=== PATIENT | male | born 1965 | race Caucasian/White ===

== ENCOUNTER 2020-09-22 11:08 | Observation (INO) | payer OTHER, SELFPAY ==
--- OUTSIDE RECORDS SUMMARY | 2020-09-22 11:10 | XMS REPORT | Continuity of Care Document ---
:1965 Author Organization [facility] t Address [address] [place] [address] Care Team Providers Name Role Phone Carlos Castellon DO Attending Clinician Only, Test Attending Clinician Unavailable Doctor Unassigned, Name Attending Clinician Unavailable Josef GIFFORD Attending Clinician Visit, Nurse Attending Clinician Unavailable 1, Cardio Fac Room Attending Clinician Unavailable Problems This patient has no known problems. Allergies, Adverse Reactions, Alerts This patient has no known allergies or adverse reactions. Medications This patient has no known medications. Procedures This patient has no known procedures. Encounters Start End Encounter Admission Attending Care Care Encounter Source Date/Time Date/Time Type Type Clinicians Facility Department ID 2020-08-29 2020-08-29 Patient Ravinder OKADINA [id number] 00:00:00 00:00:00 Outreach [facility] [id number] [facility] [id number] SOD [id number] 2020-06-29 2020-06-29 Laboratory Only, [facility] [id number] 08:11:04 08:26:04 Only Test Zane [id number] [place] [id number] [place] [id number] 2020-06-29 2020-06-29 Orders Doctor JEWELL [id number] 00:00:00 00:00:00 Only UnassignedALEX [id number] [place] [facility] [id number] 2019-07-01 2019-07-01 Patient Josef, [facility] [id number] 00:00:00 00:00:00 Secure Msg [place] [id number] [place] [id number] [place] [phone] [address] 2019-06-30 2019-06-30 Laboratory Visit, Adc Nurse [facility] 1.2.84 [id number] [id number] 13:57:27 14:57:27 Only 1, Adc Cardio Fac Room [place] 350.1. 13.10 [place] [id number] [place] [id number] [address] 2019-06-30 2019-06-30 Orders Doctor FANTA [id number] 00:00:00 00:00:00 Only Unassigned, [id number] [email or web address] [id number] Results This patient has no known results.
[2020-09-22] MEDS ORDERED: NA CHLORIDE 0.9% 1,000 ML ONE (12:31)
[2020-09-22] MEDS ORDERED: KETOROLAC 30 MG/ML INJ ONE (12:37)
[2020-09-22 12:40] LABS: Absolute Lymphocytes (CBC) 2.6 K/uL (0.7-4.9); Basophils % 0.5 % (0-1.3); Hematocrit 50.3 % (39.6-49.0); Lymphocytes % 12.7 % (15.3-44.8); MPV 8.3 fL (7.6-11.3); RBC Red Blood Cell Count 5.81 M/uL (4.33-5.43)
[2020-09-22 13:07] LABS: Blood Morphology Comment NOT SEEN (NOT SEEN); Platelet Estimate ADEQ
--- NOTE | 2020-09-22 13:15 | RAD REPORT ---
EXAM DESCRIPTION: CT - Abdomen Pelvis W Contrast - 09/22/2020 1:00 pm CLINICAL HISTORY: ABD PAIN COMPARISON: No comparisons TECHNIQUE: Biphasic, helical CT imaging of the abdomen and pelvis was performed following 100 ml non -ionic IV contrast. No oral contrast administered. All CT scans are performed using dose optimization technique as appropriate and may include automated exposure control or mA/KV adjustment according to patient size. FINDINGS: No suspicious findings in the lung bases. The liver, spleen, and pancreas show no suspicious findings. Gallbladder and biliary tree are also wi thout suspicious finding. Symmetric renal function is seen with no hydronephrosis or suspicious renal mass. No pyelonephritis o r acute parenchymal process. No bladder abnormalities. No adrenal abnormalities. No stomach or small bowel abnormality identified. Michael of the stomach are accentuated due to the abs ence of intra lumen content. This precludes a thorough assessment of the gastric michael. No asymmetric gastric wall thickening seen. The appendix is normal. From cecum through splenic flexure no acute co jalyn finding seen. There is an approximately 7 centimeter long segment of the descending colon showing circumferential wall thickening and edema. There is fluid in stranding around the involved colon and collecting in the left pericolic gutter. A single diverticulum is seen in this region. There is no e xtraluminal air or bowel content. No abscess seen. No other area of inflammatory stranding or fluid. No hernia, mass or bulky lymphadenopathy. No suspicious bony findings. IMPRESSION: Circumferential wall thickening of the descending colon with surrounding stranding and f luid. There is no free air, abscess or other surgically emergent finding. Patient has a single diverticulum identifiable in the involved colon. This could be a diverticulitis or colitis. Colon malignancy is felt to be much less likely. A follow-up colonoscopy could be perform ed after medical management of the acute event.
[2020-09-22 13:35] LABS: Albumin 3.5 g/dL (3.4-5.0); Bilirubin Direct 0.2 mg/dL (0-0.2); Bilirubin Total 0.6 mg/dL (0.2-1.0); Potassium 4.5 mmol/L (3.5-5.1); Protein, Total 8.1 g/dL (6.4-8.2)
--- NOTE | 2020-09-22 14:32 | ER ---
Nurse's Notes [facility] Name: Andrés Coffey Age: 54 yrs Sex: Male : 1965 Arrival Date: 09/22/2020 Time: 11:10 Bed 4 Private MD: Diagnosis: Left sided colitis Presentation: 09/22 11:20 Chief complaint: Patient states: L side abdominal pain since yesterday AM. Feels ca1 bloated. Denies N/V/D. Coronavirus screen: Client denies travel out of the [place] in the last 14 days. At this time, the client does not indicate any symptoms associated with coronavirus-19. Ebola Screen: Patient negative for fever greater than or equal to 101.5 degrees Fahrenheit, and additional compatible Ebola Virus Disease symptoms Patient denies exposure to infectious person. Patient denies travel to an Ebola-affected area in the 21 days before illness onset. No symptoms or risks identified at this time. Initial Sepsis Screen: Does the patient meet any 2 criteria? No. Patient's initial sepsis screen is negative. Does the patient have a suspected source of infection? No. Patient's initial sepsis screen is negative. Risk Assessment: Do you want to hurt yourself or someone else? Patient reports no desire to harm self or others. Onset of symptoms was September 21, 2020. 11:20 Method Of Arrival: Ambulatory ca1 11:20 Acuity: JUAN MANUEL 3 ca1 Triage Assessment: 11:25 General: Appears in no apparent distress. uncomfortable, Behavior is cooperative, bp appropriate for age, anxious. Pain: Complains of pain in abdomen. EENT: No deficits noted. Neuro: No deficits noted. Cardiovascular: No deficits noted. Respiratory: No deficits noted. GI: Reports upper abdominal pain. : No signs and/or symptoms were reported regarding the genitourinary system. Derm: No deficits noted. Musculoskeletal: No deficits noted. Historical: - Allergies: 11:23 No Known Allergies; ca1 - PMHx: 11:23 High Cholesterol; ca1 - PSHx: 11:23 Cholecystectomy; ca1 - Immunization history:: Client reports having NOT received the Covid vaccine. Flu vaccine is not up to date. - Social history:: Smoking status: Patient reports the use of cigarette tobacco products, smokes two packs cigarettes per day. Screenin:26 Abuse screen: Denies threats or abuse. Denies injuries from another. Nutritional bp screening: No deficits noted. Tuberculosis screening: No symptoms or risk factors identified. Fall Risk None identified. Assessment: 11:26 General: SEE TRIAGE NOTE. bp 12:21 Reassessment: No changes from previously documented assessment. Patient and/or family bp updated on plan of care and expected duration. Pain level reassessed. CT PENDING. 13:20 Reassessment: No changes from previously documented assessment. Patient and/or family bp updated on plan of care and expected duration. Pain level reassessed. PT RETURNED FROM CT. 14:30 Reassessment: No changes from previously documented assessment. Patient and/or family bp updated on plan of care and expected duration. Pain level reassessed. Patient is alert, oriented x 3, equal unlabored respirations, skin warm/dry/pink. ADMIT INITIATED. 16:30 Reassessment: No changes from previously documented assessment. Patient and/or family bp updated on plan of care and expected duration. Pain level reassessed. Patient is alert, oriented x 3, equal unlabored respirations, skin warm/dry/pink. ADMIT IN PROCESS. 19:49 GI: Bowel sounds present X 4 quads. Abd is soft and non tender X 4 quads. rv Vital Signs: 11:20 BP 126 / 85; Pulse 93; Resp 16 S; Temp 97.9(TE); Pulse Ox 98% on R/A; Weight 102.06 kg ca1 (R); Height 5 ft. 10 in. (177.80 cm) (R); Pain 10/10; 12:30 BP 128 / 76; Pulse 80; Resp 15; Pulse Ox 97% ; jl7 13:20 BP 130 / 83; Pulse 76; Resp 16; Pulse Ox 96% ; bp 14:30 BP 117 / 77; Pulse 75; Resp 17; Pulse Ox 95% ; bp 15:30 BP 108 / 76; Pulse 77; Resp 16; Pulse Ox 96% ; bp 16:30 BP 118 / 73; Pulse 77; Resp 17; Pulse Ox 95% ; bp 17:30 BP 115 / 77; Pulse 75; Resp 16; Pulse Ox 95% ; bp 11:20 Body Mass Index 32.28 (102.06 kg, 177.80 cm) ca1 ED Course: 11:10 Patient arrived in ED. as 11:22 Triage completed. ca1 11:23 Arm band placed on right wrist. ca1 11:25 Vasquez De La Fuente, HARJIT is Primary Nurse. bp 11:26 Patient has correct armband on for positive identification. Bed in low position. Call bp light in reach. Side rails up X2. Adult w/ patient. 11:28 Dallas Chatman PA is PHCP. cp 11:28 Kyle Will MD is Attending Physician. cp 12:18 Initial lab(s) drawn, by nm, sent to lab. Inserted saline lock: 20 gauge in right jl7 antecubital area, using aseptic technique. Blood collected. 13:00 CT Abd/Pelvis - IV Contrast Only In Process Unspecified. EDMS 14:31 Kenroy Carson MD is Hospitalizing Provider. cp 15:20 COVID-19 : Document "Date of Symptom Onset" if Symptomatic. Sent. [facility] 15:20 COVID swab sent to lab. 5 17:39 No provider procedures requiring assistance completed. Patient admitted, IV remains in bp place. Administered Medications: 12:00 Drug: TORadol - (ketorolac) 15 mg Route: IVP; Site: right antecubital; bp 13:53 Follow up: Response: Pain is decreased bp 12:18 Drug: NS 0.9% 1000 ml Route: IV; Rate: 1 bolus; Site: right antecubital; jl7 17:40 Follow up: IV Status: Completed infusion; IV Intake: 1000ml bp 14:00 Drug: metroNIDAZOLE 500 mg Volume: 100 ml; Route: IVPB; Infused Over: 30 mins; Site: bp right antecubital; 17:40 Follow up: IV Status: Completed infusion; IV Intake: 100ml bp 15:00 Drug: Cipro (ciprofloxacin) 400 mg Volume: 200 ml; Route: IVPB; Infused Over: 60 mins; bp Site: right antecubital; 17:39 Follow up: IV Status: Completed infusion; IV Intake: 200ml bp Intake: 17:39 IV: 200ml; Total: 200ml. bp 17:40 IV: 100ml; Total: 300ml. bp 17:40 IV: 1000ml; Total: 1300ml. bp Outcome: 14:32 Decision to Hospitalize by Provider. cp 19:49 Admitted to Med/surg accompanied by nurse, via wheelchair, room 218, Other SBAR Report rv called to KRISTI LOMBARDI 19:49 Condition: good 19:49 Instructed on the need for admit. 19:49 Patient left the ED. rv Signatures: Dispatcher [employer] Erin Mead Corey, PA PA cp Martinez, Maria [facility] Jimbo Greene RN RN jl7 Vasquez De La Fuente RN RN bp Evin Garvey RN RN rv Acob, HARJIT Goldsmith RN ca1 Corrections: (The following items were deleted from the chart) 15:53 15:20 CORONAVIRUS drawn and sent. [facility] JUSTUSNH
--- NOTE | 2020-09-22 14:32 | EDPHYS ---
Physician Documentation [facility] Name: Andrés Coffey Age: 54 yrs Sex: Male : 1965 Arrival Date: 09/22/2020 Time: 11:10 Bed 4 Private MD: ED Physician Kyle Will HPI: 09/22 11:50 This 54 yrs old Male presents to ER via Ambulatory with complaints of cp Abdominal Pain. 11:50 The patient presents with abdominal pain left side of abdomen. Onset: The cp symptoms/episode began/occurred yesterday, and became worse today. 11:50 Associated signs and symptoms: Pertinent negatives: blood in stools, constipation, cp diarrhea, dysuria, fever, testicular pain, vomiting. The symptoms are described as constant. Modifying factors: the symptoms are aggravated by movement. Historical: - Allergies: 11:23 No Known Allergies; ca1 - PMHx: 11:23 High Cholesterol; ca1 - PSHx: 11:23 Cholecystectomy; ca1 - Immunization history:: Client reports having NOT received the Covid vaccine. Flu vaccine is not up to date. - Social history:: Smoking status: Patient reports the use of cigarette tobacco products, smokes two packs cigarettes per day. ROS: 11:55 Eyes: Negative for injury, pain, redness, and discharge. cp 11:55 Constitutional: Negative for body aches, chills, fever, poor PO intake. 11:55 ENT: Negative for ear pain, sore throat, difficulty swallowing, difficulty handling cp secretions. 11:55 Cardiovascular: Negative for chest pain, edema, palpitations. 11:55 Respiratory: Negative for cough, shortness of breath, wheezing. 11:55 Abdomen/GI: Positive for abdominal pain, Negative for vomiting, diarrhea, constipation, black/tarry stool, rectal bleeding. 11:55 Back: Negative for radiated pain. 11:55 : Negative for urinary symptoms, testicular pain 11:55 All other systems are negative. Exam: 12:00 Constitutional: The patient appears in no acute distress, alert, awake, cp non-diaphoretic, non-toxic, well developed, well nourished. 12:00 Head/Face: Normocephalic, atraumatic. cp 12:00 Eyes: Periorbital structures: appear normal, Conjunctiva: normal, no exudate, no injection, Sclera: no appreciated abnormality, Lids and lashes: appear normal, bilaterally. 12:00 ENT: External ear(s): are unremarkable, Nose: is normal, Posterior pharynx: Airway: no evidence of obstruction, patent. 12:00 Chest/axilla: Inspection: normal, Palpation: is normal, no crepitus, no tenderness. 12:00 Cardiovascular: Rate: normal, Rhythm: regular. 12:00 Respiratory: the patient does not display signs of respiratory distress, Respirations: cp normal, no use of accessory muscles, no retractions, labored breathing, is not present, Breath sounds: are clear throughout, no decreased breath sounds, no stridor, no wheezing. 12:00 Abdomen/GI: Inspection: abdomen appears normal, Bowel sounds: active, all quadrants, Palpation: soft, in all quadrants, moderate abdominal tenderness, in the left upper quadrant and left lower quadrant, rebound tenderness, is not appreciated, voluntary guarding, is elicited in the left upper quadrant and left lower quadrant. 12:00 Back: pain, is absent, ROM is normal. Vital Signs: 11:20 BP 126 / 85; Pulse 93; Resp 16 S; Temp 97.9(TE); Pulse Ox 98% on R/A; Weight 102.06 kg ca1 (R); Height 5 ft. 10 in. (177.80 cm) (R); Pain 10/10; 12:30 BP 128 / 76; Pulse 80; Resp 15; Pulse Ox 97% ; jl7 13:20 BP 130 / 83; Pulse 76; Resp 16; Pulse Ox 96% ; bp 14:30 BP 117 / 77; Pulse 75; Resp 17; Pulse Ox 95% ; bp 15:30 BP 108 / 76; Pulse 77; Resp 16; Pulse Ox 96% ; bp 16:30 BP 118 / 73; Pulse 77; Resp 17; Pulse Ox 95% ; bp 17:30 BP 115 / 77; Pulse 75; Resp 16; Pulse Ox 95% ; bp 11:20 Body Mass Index 32.28 (102.06 kg, 177.80 cm) ca1 MDM: 11:43 Patient medically screened. cp 14:31 Data reviewed: vital signs, nurses notes, lab test result(s), radiologic studies, CT cp scan, and as a result, I will admit patient. 14:35 Physician consultation: Kenroy Carson MD was called at 14:30, was contacted at 14:30, cp regarding admission, to the medical/surgical unit. patient's condition. 09/22 11:44 Order name: Basic Metabolic Panel; Complete Time: 13:39 cp 09/22 11:44 Order name: CBC with Diff; Complete Time: 13:39 cp 09/22 11:44 Order name: Hepatic Function; Complete Time: 13:39 cp 09/22 11:44 Order name: Lipase; Complete Time: 13:39 cp 09/22 13:07 Order name: Manual Differential; Complete Time: 13:39 EDMS 09/22 14:36 Order name: COVID-19 : Document "Date of Symptom Onset" if Symptomatic. iw 09/22 11:44 Order name: CT Abd/Pelvis - IV Contrast Only; Complete Time: 13:39 cp 09/22 16:05 Order name: Magnesium EDMS 09/22 16:06 Order name: CBC with Automated Diff EDMS 09/22 16:06 Order name: CBC with Automated Diff EDMS 09/22 16:06 Order name: Comprehensive Metabolic Panel EDMS 09/22 16:06 Order name: Comprehensive Metabolic Panel EDMS 09/22 16:35 Order name: SARS-COV-2 RT PCR EDMS 09/22 11:44 Order name: IV Saline Lock; Complete Time: 12:18 cp 09/22 11:44 Order name: Labs collected and sent; Complete Time: 12:18 cp 09/22 16:05 Order name: Full Liquid EDMS Administered Medications: 12:00 Drug: TORadol - (ketorolac) 15 mg Route: IVP; Site: right antecubital; bp 13:53 Follow up: Response: Pain is decreased bp 12:18 Drug: NS 0.9% 1000 ml Route: IV; Rate: 1 bolus; Site: right antecubital; jl7 17:40 Follow up: IV Status: Completed infusion; IV Intake: 1000ml bp 14:00 Drug: metroNIDAZOLE 500 mg Volume: 100 ml; Route: IVPB; Infused Over: 30 mins; Site: bp right antecubital; 17:40 Follow up: IV Status: Completed infusion; IV Intake: 100ml bp 15:00 Drug: Cipro (ciprofloxacin) 400 mg Volume: 200 ml; Route: IVPB; Infused Over: 60 mins; bp Site: right antecubital; 17:39 Follow up: IV Status: Completed infusion; IV Intake: 200ml bp Disposition: 09/22/20 14:32 Hospitalization ordered by Kenroy Carson for Inpatient Admission. Preliminary diagnosis is Left sided colitis. - Bed requested for Telemetry/MedSurg (Inpatient). - Status is Inpatient Admission. rv - Condition is Stable. - Problem is new. - Symptoms have improved. Addendum: 09/27/2020 10:08 Co-signature as Attending Physician, Kyle Will MD I agree with the assessment and t w4 plan of care. Signatures: Dispatcher [employer] EDNM Rosy Pemberton, RN RN dw Dallas Chatman PA PA cp Jimbo Greene, RN RN jl7 Vasquez De La Fuente RN RN Kyel Morin MD MD tw4 Evin Garvey, RN RN rv Acob, Rupal RN RN ca1 Corrections: (The following items were deleted from the chart) 09/22 15:53 14:37 CORONAVIRUS ordered. [facility] 17:46 14:32 Hospitalization Ordered by Kenroy Carson MD for Inpatient Admission. Preliminary dw diagnosis is Left sided colitis. Bed requested for Telemetry/MedSurg (Inpatient). Status is Inpatient Admission. Condition is Stable. Problem is new. Symptoms have improved. cp 19:49 17:46 09/22/2020 14:32 Hospitalization Ordered by Kenroy Carson MD for Inpatient rv Admission. Preliminary diagnosis is Left sided colitis. Bed requested for Telemetry/MedSurg (Inpatient). Status is Inpatient Admission. Condition is Stable. Problem is new. Symptoms have improved. dw
[2020-09-22] MEDS ORDERED: METRONIDAZOLE 500mg IVPB 500 MG/100 ML BAG IV ONE (14:40)
[2020-09-22] MEDS ORDERED: CIPROFLOXACIN 400mg IV 400 MG/200 ML BAG IV ONE (15:46)
[2020-09-22] MEDS ORDERED: ALBUTEROL 2.5 MG/3 ML NEB SOL NEB PRN (16:00)
[2020-09-22] MEDS ORDERED: ACETAMINOPHEN 500 MG TAB PO PRN (16:00)
[2020-09-22] MEDS ORDERED: ONDANSETRON 4 MG/2 ML VIAL IV PRN (16:00)
[2020-09-22] MEDS ORDERED: MORPHINE 2 MG/ML SYR IV PRN (16:00)
[2020-09-22] MEDS ORDERED: HYDRALAZINE HCL 20 MG/ML VIAL IV PRN (16:02)
[2020-09-22] MEDS ORDERED: LACTULOSE 20 GM/30 ML UCUP PO PRN (16:03)
--- NOTE | 2020-09-22 16:12 | P.HP ---
Certification for Inpatient Patient admitted to: Observation With expected LOS: <2 Midnights Patient will require the following post-hospital care: None Practitioner: I am a practitioner with admitting privileges, knowledge of patient current condition, hospital course, and medical plan of care. Services: Services provided to patient in accordance with Admission requirements found in Title 42 Section 412.3 of the Code of Federal Regulations Patient History Date of Service: 09/22/20 Reason for admission: Left-sided abdominal pain History of Present Illness: 54-year-old male with past medical history of hyperlipidemia, status post cholecystectomy develop left-sided abdominal pain since the last 3 days. Pain has been worsening radiating to the back. He described pain at about 8 out of 10. He denies any fever, chills or nausea. He admits to decreased p.o. intake. He states he had a colonoscopy done 3 years ago where 2 polyps were pulled out and he was scheduled for a repeat colonoscopy PCI. There is no personal family history of colon cancer. On admission he had a CT of the abdomen done with findings of colitis surrounding a diverticulum. He was noted with elevated WBC of 20k. Home medications list reviewed: No - Past Medical/Surgical History Has patient received pneumonia vaccine in the past: No -: Hyperlipidemia -: Cholecystectomy - Social History Smoking Status: Current every day smoker Counseled patient to stop smoking for: more than 10 minutes Smoking therapy provided: Yes Patient receptive to therapy: No Alcohol use: No CD- Drugs: No Caffeine use: No Place of Residence: Home Review of Systems 10-point ROS is otherwise unremarkable Physical Examination - Physical Exam General: Alert, In no apparent distress, Oriented x3, Cooperative HEENT: Atraumatic, Normocephalic, PERRLA Neck: Supple, 2+ carotid pulse no bruit, JVD not distended Respiratory: Clear to auscultation bilaterally, Normal air movement Cardiovascular: No edema, Normal pulses, Regular rate/rhythm, Normal S1 S2 Capillary refill: <2 Seconds Gastrointestinal: Normal bowel sounds, Soft and benign, Non-distended, No guarding, Tenderness (left abdominal qaudrant ) Musculoskeletal: No clubbing, No swelling Integumentary: No rashes, No breakdown, No significant lesion Neurological: Normal speech, Normal strength at 5/5 x4 extr, Normal tone, Sensation intact External genitalia: No edema, No lesions - Studies Laboratory Data (last 24 hrs) 09/22/20 12:15: WBC 20.10 H*, Hgb 16.7, Hct 50.3 H, Plt Count 392 09/22/20 12:15: Sodium 138, Potassium 4.5, BUN 12, Creatinine 0.92, Glucose 98, Total Bilirubin 0.6, AST 9 L, ALT 22, Alkaline Phosphatase 104, Lipase 99 Imagings Data: CT abdomen IMPRESSION: Circumferential wall thickening of the descending colon with surrounding stranding and fluid. There is no free air, abscess or other surgically emergent finding. Patient has a single diverticulum identifiable in the involved colon. This could be a diverticulitis or colitis. Colon malignancy is felt to be much less likely. A follow-up colonoscopy could be performed after medical management of the acute event. Assessment and Plan - Problems (Diagnosis) (1) Colitis Current Visit: Yes Status: Acute (2) Leucocytosis Current Visit: Yes Status: Acute (3) Tobacco abuse Current Visit: Yes Status: Acute - Advance Directives Does patient have a Living Will: No Does patient have a Durable POA for Healthcare: No Physician Review: Patient Assessed, Agree with Above Assessment and Plan Physician Review Additional Text: Impression/plan 1. Colitis-surrounding an area of diverticulum, may have been precipitated by recent constipation We start antibiotics with Levaquin/Flagyl Will put patient on full liquid diet for now. Since still associated constipation will start laxative Do IV antibiotics for now 2-tobacco use, need for cessation discussed -will nicotine patch # Leukocytosis-follow daily WBC with antibiotics # DVT prophylaxis-subcutaneous Lovenox # Advanced directive-full code Time Spent Managing Pts Care (In Minutes): 60
[2020-09-22] MEDS ORDERED: Levofloxacin 750mg IV 750 MG/150 ML BAG IV SCH (18:00)
[2020-09-22] MEDS: NICOTINE 21 MG/PAT TD SCH (18:00)
[2020-09-22] MEDS ORDERED: BISACODYL E.C. 5 MG TAB PO ONE (18:00)
[2020-09-22] MEDS: ENOXAPARIN 40 MG/0.4 ML SQ SCH (21:35)
[2020-09-22] MEDS: NA CHLORIDE 0.9% 1,000 ML IV SCH (21:35)
[2020-09-22] MEDS: metroNIDAZOLE 500 MG TABLET PO SCH (21:36)
[2020-09-23 01:02] VITALS: O2SAT 94; BMI 32.3
[2020-09-23] MEDS: NA CHLORIDE 0.9% 1,000 ML IV SCH ×2 (05:47→12:00)
[2020-09-23 06:07] LABS: Basophils % 0.8 % (0-1.3); Hematocrit 43.5 % (39.6-49.0); MPV 8.4 fL (7.6-11.3); RBC Red Blood Cell Count 5.05 M/uL (4.33-5.43)
[2020-09-23 06:31] LABS: ALT/SGPT 17 U/L (12-78); AST/SGOT 10 U/L (15-37); Albumin 2.9 g/dL (3.4-5.0); Alkaline Phosphatase 80 U/L (45-117); BUN Blood Urea Nitrogen 16 mg/dL (7-18); Bicarbonate 23 mmol/L (21-32); Bilirubin Total 0.6 mg/dL (0.2-1.0); Glucose Level 95 mg/dL (74-106); Magnesium 2.3 mg/dL (1.8-2.4); Potassium 3.8 mmol/L (3.5-5.1); Protein, Total 6.8 g/dL (6.4-8.2); Sodium Level 138 mmol/L (136-145)
[2020-09-23] MEDS: metroNIDAZOLE 500 MG TABLET PO SCH ×2 (08:47→13:24)
[2020-09-23] MEDS: ENOXAPARIN 40 MG/0.4 ML SQ SCH (08:47)
[2020-09-23] MEDS: NICOTINE 21 MG/PAT TD SCH (08:48)
--- NOTE | 2020-09-23 13:25 | P.DS ---
Admission Date: 09/22/20 Discharge Date: 09/23/20 Disposition: ROUTINE DISCHARGE Discharge Condition: GOOD Reason for Admission: Left-sided abdominal pain Procedures: CT Abd/Pelvis (09/22): Circumferential wall thickening of the descending colon with surrounding stranding and fluid. There is no free air, abscess or other surgically emergent finding. Patient has a single diverticulum identifiable in the involved colon. This could be a diverticulitis or colitis. Colon malignancy is felt to be much less likely. A follow-up colonoscopy could be performed after medical management of the acute event. Problem List Colitis Tobacco abuse Constipation Brief History of Present Illness: 54-year-old male with past medical history of hyperlipidemia, status post cholecystectomy develop left-sided abdominal pain since the last 3 days. Pain has been worsening radiating to the back. He described pain at about 8 out of 10. He denies any fever, chills or nausea. He admits to decreased p.o. intake. He states he had a colonoscopy done 3 years ago where 2 polyps were pulled out and he was scheduled for a repeat colonoscopy PCI. There is no personal family history of colon cancer. On admission he had a CT of the abdomen done with findings of colitis surrounding a diverticulum. He was noted with elevated WBC of 20k. Hospital Course: Treated with levaquin/flagyl for colitis and given laxative for constipation. Had complete resolution of pain and constipation overnight. Patient reported feeling back to his normal self, remained afebrile, and WBC improved significantly. He was requesting to be discharged home. He tolerated soft diet without issue and was discharged home. 2 week course of levaquin/flagyl advised to continue with soft/bland diet for a few days and slowly build back up to regular diet. Follow up with PCP Follow up with GI for colonoscopy in near future Vital Signs/Physical Exam: Temp Pulse Resp BP Pulse Ox 97.8 F 79 18 119/76 95 09/23/20 08:00 09/23/20 08:00 09/23/20 08:00 09/23/20 08:00 09/23/20 08:00 General: Alert, In no apparent distress, Oriented x3 HEENT: Atraumatic, PERRLA, Mucous membr. moist/pink, EOMI Respiratory: Clear to auscultation bilaterally, Normal air movement Cardiovascular: Regular rate/rhythm, Normal S1 S2 Gastrointestinal: Normal bowel sounds, Soft and benign, Non-distended, No tenderness Musculoskeletal: No erythema, No tenderness Integumentary: No rashes Neurological: Normal speech, Normal affect Laboratory Data at Discharge: WBC 14.40 K/uL (4.3-10.9) H D 09/23/20 05:30 Hgb 14.8 g/dL (13.6-17.9) 09/23/20 05:30 Hct 43.5 % (39.6-49.0) 09/23/20 05:30 Plt Count 303 K/uL (152-406) D 09/23/20 05:30 Sodium 138 mmol/L (136-145) 09/23/20 05:30 Potassium 3.8 mmol/L (3.5-5.1) 09/23/20 05:30 BUN 16 mg/dL (7-18) 09/23/20 05:30 Creatinine 0.77 mg/dL (0.55-1.3) 09/23/20 05:30 Glucose 95 mg/dL (74-106) 09/23/20 05:30 Magnesium 2.3 mg/dL (1.8-2.4) 09/23/20 05:30 Total Bilirubin 0.6 mg/dL (0.2-1.0) 09/23/20 05:30 AST 10 U/L (15-37) L 09/23/20 05:30 ALT 17 U/L (12-78) 09/23/20 05:30 Alkaline Phosphatase 80 U/L (45-117) 09/23/20 05:30 Lipase 99 U/L (73-393) 09/22/20 12:15 Home Medications: Atorvastatin Calcium 20 mg PO BEDTIME 09/22/20 levoFLOXacin [Levaquin] 750 mg PO DAILY 12 Days #12 tab 09/23/20 metroNIDAZOLE [Flagyl*] 500 mg PO TID 12 Days #36 tablet 09/23/20 New Medications: metroNIDAZOLE [Flagyl*] 500 mg PO TID 12 Days #36 tablet levoFLOXacin [Levaquin] 750 mg PO DAILY 12 Days #12 tab Physician Discharge Instructions: PROBLEM: Colitis/leukocytosis GOAL: Clear understanding of disease process INSTRUCTIONS: Diet: Regular Activity: As tolerated If you have any questions regarding your stay call [phone] If your symptoms worsen call 911 or go to the ED You were found to have diverticulitis/colitis and improved with IV antibiotics. You are discharged with 12 more days of antibiotics. Follow up with PCP in 3-5 days. Follow up with GI for colonoscopy in ~2-3 months, once inflammation has resolved - discussed with PCP/GI. Diet: Regular (bland/soft) Activity: Ad brian Followup: NONE,NONE [Primary Care Provider] - Yemi Flynn MD [ASSOCIATE-ACTIVE - CAN ADMIT] - Time spent managing pt's care (in minutes): 35
[2020-09-23 15:01] VITALS: BP 123/70; TEMP 98.3
== END 2020-09-23 15:50 | disposition home or self-care (01) ==
LOC: ER 11:08 → ERHOLD 16:00 → 2ND 21:19
PROVIDERS: ADMIT Internal Medicine; ATTEND Hospitalist
DX: K52.9 Noninfective gastroenteritis and colitis, unspecified (principal); K57.92 Diverticulitis of intestine, part unspecified, without perforation or abscess without bleeding; K59.00 Constipation, unspecified; D72.829 Elevated white blood cell count, unspecified; E78.5 Hyperlipidemia, unspecified; E78.00 Pure hypercholesterolemia, unspecified; F17.210 Nicotine dependence, cigarettes, uncomplicated; Z71.6 Tobacco abuse counseling; Z86.010 Personal history of colon polyps; Z90.49 Acquired absence of other specified parts of digestive tract; Z20.822 Contact with and (suspected) exposure to COVID-19
CPT/HCPCS: 96365; 96361; 87040; 85025 ×2; 80048; 36415; 83735 ×2; 82565; 80076; 83690; 80053; 84145; 86140; 74177; 96375; 99285; 96366; U0003; Q9967; J1650 ×2; J7030 ×4; J0744; G0378 ×3